=== PATIENT | female | born 1980 | race African-American/Black ===

== ENCOUNTER 2021-11-09 22:13 | Emergency (ER) | payer OTHER ==
[~2021-11-09] VITALS: Ht 172.7 cm; Wt 111.1 kg
[2021-11-09] MEDS ORDERED: PATADAY5 ML TOP (22:40)
[2021-11-09 23:00] VITALS: BP 148/60
== END 2021-11-09 23:10 | disposition home or self-care (01) ==
LOC: ER 22:13 → EDBD 22:13 → ER 23:10
DX: H11.421 Conjunctival edema, right eye (principal)